=== PATIENT | male | born 2000 | race African-American/Black ===

== ENCOUNTER 2021-12-04 20:13 | Emergency (ER) | payer OTHER ==
[~2021-12-04] VITALS: Ht 165.1 cm; Wt 72.2 kg
[2021-12-04 20:14] VITALS: BP 123/58
[2021-12-04] MEDS ORDERED: CEPHALEXIN 500 MG CAP PO ONE (22:35)
[2021-12-04] MEDS ORDERED: CEPH500C PO (22:44)
== END 2021-12-04 22:59 | disposition home or self-care (01) ==
LOC: M ED 20:13
DX: L03.114 Cellulitis of left upper limb (principal)